=== PATIENT | male | born 1985 | race Caucasian/White ===

== ENCOUNTER 2019-01-03 13:46 | Emergency (ER) | payer MEDICAID ==
[~2019-01-03] VITALS: Ht 170.2 cm; Wt 76.8 kg
[2019-01-03 13:59] VITALS: BP 144/89
--- NOTE | 2019-01-03 14:22 | NUR ---
PATIENT PRESENTS TO ED WITH PAIN AT THE HEAD. STATES PAIN AT 8/10, EXCURIATING SENSATION. COMPLAINS OF HAVING BLURRED VISON. PER PT, WENT TO PCP 2 DAYS AGO, REFERED TO SEE THE NEUROLOGIST. PT STATES TO HAVE FELL ON THE GROUND BACK ON HER HEAD. STATES THAT HE HAS NEVER BEEN SAME AFTER THAT. PT HAD 5-7 CT OF HEAD BEFORE. PT STATES BIENG ON GABAPENTIN , STOPPED TAKING IT AFTER 2 DAYS. PT APPEARS SLIGHT ANXIOUS, C/O OF NAUSEA. PT ABLE TO COMMUNICTAE PROPERLY, AOX4. PT SITTING COMFORTABLY ON BED, SIDE RAIL UPX1, BED AT LOWER POSITION. WILL COTINUE TO JAQUELIN PT.
[2019-01-03] MEDS ORDERED: ONDANSETRON 4 MG ODT PO ONE (14:30)
[2019-01-03] MEDS ORDERED: KETOROLAC 60 MG/2 ML VIAL IM ONE (14:30)
--- NOTE | 2019-01-03 15:23 | NUR ---
Patient being reevaluated by DR CALDWELL at bedside.
[2019-01-03 15:26] VITALS: BP 132/78
--- NOTE | 2019-01-03 15:26 | NUR ---
Patient discharged with v/s stable. Written and verbal after care instructions given and explained. Patient alert, oriented and verbalized understanding of instructions. Ambulatory with steady gait. All questions addressed prior to discharge. ID band removed. Patient advised to follow up with PMD. Rx of motrin & tramadol given. Patient educated on indication of medication including possible reaction and side effects. Opportunity to ask questions provided and answered.
== END 2019-01-03 15:26 | disposition home or self-care (01) ==
LOC: MED 13:46
DX: G44.209 Tension-type headache, unspecified, not intractable (principal)
CPT/HCPCS: 82948; 96372; 99283; J1885; Q0162

== ENCOUNTER 2019-02-09 14:46 | Emergency (ER) | payer MEDICAID ==
[~2019-02-09] VITALS: Ht 170.2 cm; Wt 72.6 kg
[2019-02-09 14:51] VITALS: BP 127/64
--- NOTE | 2019-02-09 14:58 | NUR ---
C/O BLOATED SENSATION, CONSTIPATION, EPIGASTRIC [PAIN ---\ NAUSEA
[2019-02-09 15:25] VITALS: BP 127/64
--- NOTE | 2019-02-09 15:25 | NUR ---
Patient discharged with v/s stable. Written and verbal after care instructions given and explained. Patient alert, oriented and verbalized understanding of instructions. Ambulatory with steady gait. All questions addressed prior to discharge. ID band removed. Patient advised to follow up with PMD. Rx of LACTULOSE given. Patient educated on indication of medication including possible reaction and side effects. Opportunity to ask questions provided and answered.
== END 2019-02-09 15:25 | disposition home or self-care (01) ==
LOC: MED 14:46
DX: K59.00 Constipation, unspecified (principal); K21.9 Gastro-esophageal reflux disease without esophagitis; Z87.19 Personal history of other diseases of the digestive system
CPT/HCPCS: 99283

== ENCOUNTER 2019-03-20 13:04 | Emergency (ER) | payer MEDICAID ==
[~2019-03-20] VITALS: Ht 170.2 cm; Wt 65.8 kg
[2019-03-20 13:09] VITALS: BP 136/97
--- NOTE | 2019-03-20 13:16 | NUR ---
PT AMBULATED TO ER BED 02
--- NOTE | 2019-03-20 13:35 | NUR ---
PT BIB SELF WITH C/O NAUSEA,MID ABDPOMINAL PAIN X 2 MONTHS. LAST BM THIS AM. STATES TO HAVE CONSTIPATION . ABD PAIN WORSE WHEN TOUC. PER PT, PCP HAS REFERRED TO GI DOCTOR, WAITING FOR THE DATE, WORKING IN HIS INSURANCE. PT ABDOMEN APPEARS BLAOTED, SOFT AND NON-TENDER TO TOUCH. STATES TO HAVE NAUSEA, DENIES VOMITING, DIARRHEA , FEVER OR CHILLS. NO BLOOD SEEN IN HIS STOOL. ER MD TO SEE THE PT. MED HX: GERD, GASTRITIS, HITAL HERNIA
[2019-03-20] MEDS: KETOROLAC 60 MG/2 ML VIAL IM ONE (13:39)
[2019-03-20] MEDS: ONDANSETRON 4 MG ODT PO ONE (13:40)
[2019-03-20 13:47] VITALS: BP 136/97
--- NOTE | 2019-03-20 13:52 | NUR ---
Patient discharged with v/s stable. Written and verbal after care instructions given and explained. Patient alert, oriented and verbalized understanding of instructions. Ambulatory with steady gait. All questions addressed prior to discharge. ID band removed. Patient advised to follow up with PMD. Rx of ZOFRAN , COLACE AND MOTRIN given. Patient educated on indication of medication including possible reaction and side effects. Opportunity to ask questions provided and answered.
== END 2019-03-20 13:52 | disposition home or self-care (01) ==
LOC: MED 13:04
DX: R10.13 Epigastric pain (principal); R11.0 Nausea; J45.909 Unspecified asthma, uncomplicated; K21.9 Gastro-esophageal reflux disease without esophagitis
CPT/HCPCS: 81002; 96372; 99283; J1885; Q0162

== ENCOUNTER 2019-06-28 13:21 | Emergency (ER) | payer MEDICAID ==
[~2019-06-28] VITALS: Ht 170.2 cm; Wt 65.8 kg
--- NOTE | 2019-06-28 13:29 | NUR ---
PT TAKEN TO BED 7 FOR BEDSIDE TRIAGE.
[2019-06-28 13:30] VITALS: BP 130/78
--- NOTE | 2019-06-28 14:21 | NUR ---
PATIENT COMPLAINS OF BURNING IN NOSE X 5 DAYS. PATIENT STATES HE WAS GARDENING AND SOME DIRT WENT INTO HIS NOSE AND HAS HAD CONTINOUS PAIN SINCE. PATIENT DENIES TAKING ANY MEDICATIONS. PAIN 4/10, DENIES DRAINAGE. PATIENT ALERT AND ORIENTED, BED IN LOWEST POSITION, LOCKED, BED RAIL UPX1. HX - ASTHMA, HIATAL HERNIA
[2019-06-28 14:41] VITALS: BP 130/78
--- NOTE | 2019-06-28 14:42 | NUR ---
Patient discharged with v/s stable. Written and verbal after care instructions ABOUT HAY FEVER given and explained. Patient alert, oriented and verbalized understanding of instructions. Ambulatory with steady gait. All questions addressed prior to discharge. ID band removed. Patient advised to follow up with PMD. Rx of LORATADINE AND FLONASE given. Patient educated on indication of medication including possible reaction and side effects. Opportunity to ask questions provided and answered.
== END 2019-06-28 14:42 | disposition home or self-care (01) ==
LOC: MED 13:21
DX: J30.9 Allergic rhinitis, unspecified (principal); J45.909 Unspecified asthma, uncomplicated; K21.9 Gastro-esophageal reflux disease without esophagitis
CPT/HCPCS: 99283